=== PATIENT | male | born 1970 | race Caucasian/White ===

== ENCOUNTER 2025-08-11 21:10 | Emergency (ER) | payer SELFPAY ==
[2025-08-11] MEDS ORDERED: ONDANSETRON 4 MG/2 ML VIAL ONE (22:23)
[2025-08-11] MEDS ORDERED: NA CHLORIDE 0.9% 1,000 ML ONE (22:23)
[2025-08-11] MEDS ORDERED: MORPHINE 4 MG/ML SYR ONE (22:23)
[2025-08-11 22:36] LABS: Absolute Lymphocytes (CBC) 2.4 K/uL (0.7-4.9); Hematocrit 40.0 % (39.6-49.0); Hemoglobin 13.7 g/dL (13.6-17.9); MCH 29.1 pg (27.0-35.0); MCHC 34.2 g/dL (32.0-36.0); MCV 85.1 fL (80-100); MPV 9.2 fL (7.6-11.3); Nucleated RBC Absolute Count 0.0 (0-0); Nucleated Red Blood Cells % 0.1 % (0-0); RBC Red Blood Cell Count 4.70 M/uL (4.33-5.43); White Blood Count 12.30 thou/uL (4.3-10.9)
[2025-08-11] MEDS ORDERED: BUPIVACAINE 0.5% PF 10 ML VIAL ONE (22:44)
[2025-08-11] MEDS ORDERED: LIDOCAINE 1% MPF 5 ML VIAL ONE (22:44)
[2025-08-11 22:46] LABS: PT Prothrombin Time 12.0 SECONDS (10-13.0); PTT, Activated Partial Thromb 37.4 SECONDS (27.2-37.4); Protime INR 1.06
[2025-08-11 23:00] LABS: ALT/SGPT 28.0 U/L (16-61); Albumin 3.8 g/dL (3.4-5.0); Albumin/Globulin Ratio 1.1 (1.1-1.8); Alkaline Phosphatase 71.0 U/L (45-117); Anion Gap 8.0 mEq/L (5.0-15.0); BUN Blood Urea Nitrogen 12.0 mg/dL (7-18); Globulin 3.4 g/dL (2.3-3.5); Glucose Level 92.0 mg/dL (74-106)
[2025-08-11 23:02] LABS: AST/SGOT 25.0 U/L (15-37); Potassium 4.0 mEq/L (3.5-5.1)
[2025-08-11] MEDS ORDERED: CLINDAMYCIN 900MG/D5W 900 MG/50 ML IVPB IV ONE (23:15)
[2025-08-12] MEDS ORDERED: KETOROLAC 30 MG/ML INJ ONE (00:30)
--- NOTE | 2025-08-12 00:46 | EDPHYS ---
Physician Documentation [facility] Name: Braulio Lindsay Age: 55 yrs Sex: Male : 1970 Arrival Date: 08/11/2025 Time: 21:10 Bed 12 Private MD: ED Physician Matthias Jon HPI: 08/11 22:15 This 55 yrs old Male presents to ER via Ambulatory with complaints of Toothache. cp 22:15 The patient presents with pain, swelling right lower jaw. Patient is a 55-year-old male cp who presents to the emergency department with complaints of right lower jaw pain. Patient reports he started with some tooth pain in the right lower jaw and was seen by a local dentist who started him on amoxicillin that has been taken for the last 5 days. Patient started having swelling of his right lower jaw and so he presents to the emergency department for evaluation. Historical: - Allergies: 21:38 No Known Allergies; dd2 - PMHx: 21:38 None; dd2 - PSHx: 21:38 vertebra fusion; dd2 - Immunization history:: Adult Immunizations up to date. - Infectious Disease History:: Denies. - Social history:: Smoking status: Patient reports the use of cigarette tobacco products, smokes one pack cigarettes per day. ROS: 22:20 Constitutional: Negative for body aches, chills, fever, poor PO intake, cp 22:20 Eyes: Negative for injury, pain, redness, and discharge, cp 22:20 ENT: Positive for dental pain, right lower jaw and swelling, Negative for drainage from ear(s), ear pain, difficulty swallowing, difficulty handling secretions, 22:20 Cardiovascular: Negative for chest pain, 22:20 Respiratory: Negative for cough, shortness of breath, wheezing, 22:20 Abdomen/GI: Negative for abdominal pain, vomiting, diarrhea, constipation, 22:20 Neuro: Negative for altered mental status, dizziness, headache, weakness, 22:20 All other systems are negative, Exam: 22:20 Constitutional: The patient appears in no acute distress, alert, awake, cp non-diaphoretic, non-toxic, well developed, well nourished, uncomfortable, 22:20 Head/face: Noted is swelling, that is mild, of the right lower jaw, tenderness, that is moderate, 22:20 Eyes: Periorbital structures: appear normal, Conjunctiva: normal, Sclera: no appreciated abnormality, Lids and lashes: appear normal, bilaterally, 22:20 ENT: External ear(s): are unremarkable, Ear canal(s): are normal, clear, TM's: dullness, bilaterally, Nose: is normal, Mouth: Lips: moist, Oral mucosa: moist, Gums: noted to have an abscess, right lower jaw outer gum line with erythema, swelling, Tongue: is normal, Posterior pharynx: Airway: no evidence of obstruction, patent, Dental exam: dental caries, that is severe, diffusely, pain, that is moderate, specifically in the lower right first bicuspid (#28), lower right second bicuspid (#29) and lower right first molar (#30), Voice: is normal, 22:20 Neck: ROM/movement: Meningeal signs: are not present, 22:20 Chest/axilla: Inspection: normal, Palpation: is normal, no crepitus, no tenderness, 22:20 Cardiovascular: Rate: normal, Rhythm: regular, 22:20 Respiratory: the patient does not display signs of respiratory distress, Respirations: normal, no use of accessory muscles, no retractions, labored breathing, is not present, Breath sounds: are clear throughout, no decreased breath sounds, no stridor, no wheezing, 22:20 Abdomen/GI: Inspection: abdomen appears normal, 22:20 Skin: no rash present. 22:20 Neuro: Orientation: to person, place \T\ time. Mentation: is normal, Vital Signs: 21:34 BP 188 / 95; Pulse 76; Resp 16; Temp 98.5; Pulse Ox 99% on R/A; Weight 70.31 kg; Height dd2 5 ft. 7 in. ; Pain 3/10; 22:56 BP 161 / 88 Sitting; Pulse 71 MON; Resp 19; Temp 98.9(O); Pulse Ox 98% on R/A; Weight tb4 70.31 kg; Height 5 ft. 7 in. ; Pain 3/10; 23:57 BP 151 / 67; Pulse 83; Resp 17; Pulse Ox 100% on R/A; Pain 6/10; tb4 10/04 01:06 BP 155 / 69; Pulse 64; Resp 18 S; Temp 98.3; Pulse Ox 98% on R/A; ha1 08/11 22:56 Body Mass Index 24.28 (70.31 kg, 170.18 cm) tb4 08/11 21:34 Pain Scale: Adult dd2 22:56 Pain Scale: Adult tb4 23:57 Pain Scale: Adult tb4 Procedures: 00:45 I \T\ D: Incision and drainage was performed for an abscess of the abscess outer gumline cp right lower jaw Anesthetized with 5 cc mixture of 1% lidocaine w/o epi and 0.5% Marcaine w/o epi injected, right submandibular block. Incised with #11 blade. Drained moderate amount purulent fluid. bloody fluid. the patient tolerated the procedure well. MDM: 08/11 21:37 Medical Screening Exam initiated cp 08/12 00:45 Data reviewed: vital signs, nurses notes, lab test result(s), and as a result, I will cp discharge patient. 00:45 Differential diagnosis: dental caries, dental abscess, pericoronitis, acute necrotizing cp ulcerative gingivitis, gingivostomatitis. Consideration of Admission/Observation Escalation of care including admission/observation considered. I considered the following discharge prescriptions or medication management in the emergency department Medications were administered in the Emergency Department. See MAR. Counseling: I had a detailed discussion with the patient and/or guardian regarding the historical points, exam findings, and any diagnostic results supporting the discharge/admit diagnosis, lab results, the need for outpatient follow up, a dentist, to return to the emergency department if symptoms worsen or persist or if there are any questions or concerns that arise at home. Response to treatment: the patient's symptoms have mildly improved after treatment, and as a result, I will discharge patient. 08/11 22:14 Order name: CBC with Diff; Complete Time: 23:07 cp 08/11 23:07 Interpretation: Normal except: WBC 12.30; NEUT A 8.5. cp 08/11 22:14 Order name: CMP; Complete Time: 23:07 cp 08/11 22:14 Order name: Lactate w/ 2H reflex if indic.; Complete Time: 23:07 cp 08/11 23:07 Interpretation: Reviewed. 08/11 22:14 Order name: Protime (+inr); Complete Time: 23:07 cp 08/11 22:14 Order name: Ptt, Activated; Complete Time: 23:07 cp 08/11 22:14 Order name: Accucheck; Complete Time: 22:24 cp 08/11 22:14 Order name: Cardiac monitoring; Complete Time: 22:24 cp 08/11 22:14 Order name: IV Saline Lock - Large Bore; Complete Time: 22:23 cp 08/11 22:14 Order name: Labs collected and sent; Complete Time: 22:24 cp 08/11 22:14 Order name: O2 Per Protocol; Complete Time: :24 cp 08/11 22:14 Order name: O2 Sat Monitoring; Complete Time: 22:24 cp 08/11 22:14 Order name: Vital Signs; Complete Time: 22:24 cp Administered Medications: 08/11 22:41 Drug: NS 0.9% IV 1000 ml IV at 1000 ml once; to be given as a bolus over 60 minutes tb4 Route: IV; Rate: 1000 ml; Site: right antecubital; 23:43 Follow up: Response: No adverse reaction; IV Status: Completed infusion tb4 22:41 Drug: morphine IVP or IV 4 mg IVP once over 4 mins Route: IVP; Infused Over: 4 mins; tb4 Site: right antecubital; 23:44 Follow up: Response: No adverse reaction; Pain is decreased; RASS: Alert and Calm (0) tb4 22:41 Drug: Ondansetron IVP 4 mg IVP once; over 2 minutes Route: IVP; Site: right antecubital;tb4 23:44 Follow up: Response: No adverse reaction tb4 23:00 Drug: Lidocaine Infiltration (1 %) 5 ml 5 ml Infiltration once; to bedside {Note: ha1 ADMINISTERED BY CARE PROVIDER .} Volume: 5 ml; Route: Infiltration; 23:00 Drug: Bupivacaine Infiltration (0.5 %) 10 ml 10 ml Infiltration once {Note: ha1 ADMINISTERED BY CARE PROVIDER .} Volume: 10 ml; Route: Infiltration; 23:43 Drug: Clindamycin IVPB 900 mg IVPB once over 30 mins; (mix in 50 mL) Route: IVPB; tb4 Infused Over: 30 mins; Site: right antecubital; 08/12 00:47 Drug: Ketorolac IVP 15 mg IVP once Route: IVP; Site: right antecubital; ha1 00:47 Drug: metroNIDAZOLE PO 500 mg PO once Route: PO; ha1 Disposition: 08/13 00:45 Chart complete. cp Disposition Summary: 08/12/25 00:45 Discharge Ordered Notes: Location: Home cp Problem: new cp Symptoms: have improved cp Condition: Stable cp Diagnosis - Cellulitis and abscess of mouth cp Followup: cp - With: Jose Cruz Farah DDS - When: 2 - 3 days - Reason: Recheck today's complaints Discharge Instructions: - Discharge Summary Sheet cp - Cellulitis, Adult cp - Dental Abscess cp Forms: - Medication Reconciliation Form cp - Antibiotic Education cp - Prescription Opioid Use cp - Patient Portal Instructions cp - Leadership Thank You Letter cp Prescriptions: - Clindamycin HCl 300 mg Oral Capsule - take 1 capsule ORAL route every 6 hours for 10 days; 40 capsule; Refills: 0, cp Product Selection Permitted - Metronidazole 500 mg Oral Tablet - take 1 tablet ORAL route every 8 hours; 30 tablet; Refills: 0, Product cp Selection Permitted - Tramadol 50 mg Oral Tablet - take 1 tablet ORAL route every 8 hours as needed; 12 tablet; Refills: 0, cp Product Selection Permitted Addendum: 08/15/2025 09:07 Co-signature as Attending Physician, Matthias Jon DO I reviewed the patient's care t t7 provided by the Advanced Practice Provider and agree with the diagnosis and treatment plan. Signatures: Dispatcher [employer] EDOK Adam Lr, ELIZ PADavidC Dasha Olsen RN RN ha1 AGNES CORONADO RN RN dd2 Nadine Govea RN RN tb4 Matthias Jon DO DO tt7
--- NOTE | 2025-08-12 00:46 | ER ---
Nurse's Notes [facility] Name: Braulio Lindsay Age: 55 yrs Sex: Male : 1970 Arrival Date: 08/11/2025 Time: 21:10 Bed 12 Private MD: Diagnosis: Cellulitis and abscess of mouth Presentation: 08/11 21:34 Chief complaint: Patient states: DECAYED TOOTH ON BOTTOM RIGHT. REPORTS TAKING dd2 AMOXICILLIN X 5 DAYS AND AFTER DENTIST APPOINTMENT TODAY WAS ADVISED TO COME TO ER FOR FURTHER TREATMENT. Coronavirus screen: At this time, the client does not indicate any symptoms associated with coronavirus-19. Ebola Screen: No symptoms or risks identified at this time. Initial Sepsis Screen: Does the patient meet any 2 criteria? No. Patient's initial sepsis screen is negative. Does the patient have a suspected source of infection? No. Patient's initial sepsis screen is negative. Risk Assessment: Do you want to hurt yourself or someone else? Patient reports no desire to harm self or others. Onset of symptoms was July 30, 2025. 21:34 Method Of Arrival: Ambulatory dd2 21:34 Acuity: TONEY 3 dd2 Triage Assessment: 21:38 General: Appears in no apparent distress. uncomfortable, Behavior is calm, cooperative, dd2 appropriate for age. Pain: Complains of pain in lower right first molar Pain currently is 3 out of 10 on a pain scale. EENT: Reports pain in lower right first molar. Historical: - Allergies: 21:38 No Known Allergies; dd2 - PMHx: 21:38 None; dd2 - PSHx: 21:38 vertebra fusion; dd2 - Immunization history:: Adult Immunizations up to date. - Infectious Disease History:: Denies. - Social history:: Smoking status: Patient reports the use of cigarette tobacco products, smokes one pack cigarettes per day. Screenin:45 [facility] ED Fall Risk Assessment (Adult) History of falling in the last 3 months, tb4 including since admission No falls in past 3 months (0 pts) Confusion or Disorientation No (0 pts) Intoxicated or Sedated No (0 pts) Impaired Gait No (0 pts) Mobility Assist Device Used No (0 pt) Altered Elimination No (0 pt) Score/Fall Risk Level 0 - 2 = Low Risk Maintained a safe environment. Abuse screen: Denies threats or abuse. Denies injuries from another. Nutritional screening: No deficits noted. Tuberculosis screening: No symptoms or risk factors identified. Assessment: 22:57 General: Appears uncomfortable, Behavior is calm, cooperative. Pain: Complains of pain tb4 in lower right second bicuspid and lower right first molar Pain does not radiate. Pain currently is 3 out of 10 on a pain scale. Quality of pain is described as pressure, Pain began gradually, 5 days ago Is continuous, Alleviated by nothing. Aggravated by eating, drinking, Noted to be grimacing. Neuro: Level of Consciousness is awake, alert, obeys commands, Oriented to person, place, time, situation, Site Safety Manager are equal bilaterally Moves all extremities. Full function Gait is steady, Speech is normal, Facial symmetry appears normal. Cardiovascular: Denies nausea, vomiting. Respiratory: Airway is patent Respiratory effort is even, unlabored, Respiratory pattern is regular, symmetrical. GI: No deficits noted. No signs and/or symptoms were reported involving the gastrointestinal system. : No deficits noted. No signs and/or symptoms were reported regarding the genitourinary system. EENT: Dental caries noted in lower right second bicuspid (#29) and lower right first molar (#30) Reports Pressure to right lower jaw and swelling x5 days. Derm: Skin is intact, is healthy with good turgor, Skin is dry, Skin is normal, Skin temperature is warm Abscess located on lower right second bicuspid and lower right first molar Reports pain that is 3 out of 10 on a pain scale. Musculoskeletal: No deficits noted. No signs and/or symptoms reported regarding the musculoskeletal system. Circulation, motion, and sensation intact. Range of motion: intact in all extremities. Vital Signs: 21:34 BP 188 / 95; Pulse 76; Resp 16; Temp 98.5; Pulse Ox 99% on R/A; Weight 70.31 kg; Height dd2 5 ft. 7 in. ; Pain 3/10; 22:56 BP 161 / 88 Sitting; Pulse 71 MON; Resp 19; Temp 98.9(O); Pulse Ox 98% on R/A; Weight tb4 70.31 kg; Height 5 ft. 7 in. ; Pain 3/10; 23:57 BP 151 / 67; Pulse 83; Resp 17; Pulse Ox 100% on R/A; Pain 6/10; tb4 10/04 01:06 BP 155 / 69; Pulse 64; Resp 18 S; Temp 98.3; Pulse Ox 98% on R/A; ha1 08/11 22:56 Body Mass Index 24.28 (70.31 kg, 170.18 cm) tb4 08/11 21:34 Pain Scale: Adult dd2 22:56 Pain Scale: Adult tb4 23:57 Pain Scale: Adult tb4 ED Course: 08/11 21:22 Patient arrived in ED. im 21:31 Adam Lr PA-C is PHCP. cp 21:31 Matthias Jon DO is Attending Physician. cp 21:38 Triage completed. dd2 21:38 Arm band placed on right wrist. dd2 22:32 Inserted saline lock: 20 gauge in right antecubital area, using aseptic technique. tb4 Blood collected. Flushed with 10 mL NS. 22:45 Patient has correct armband on for positive identification. Bed in low position. Call tb4 light in reach. Side rails up X 1. Side rails up X2. Client placed on continuous cardiac and pulse oximetry monitoring. NIBP monitoring applied. manager monitoring on. Pulse ox on. Door closed. Lights dimmed. Warm blanket given. 22:45 Initial lab(s) drawn, by me, sent to lab. tb4 08/12 00:44 Jose Cruz Farah DDS is Referral Physician. cp 01:07 No provider procedures requiring assistance completed. IV discontinued, intact, ha1 bleeding controlled, No redness/swelling at site. Pressure dressing applied. 01:08 Provided Education on: FOLLOW UP WITH ORAL SURGERY . ha1 Administered Medications: 08/11 22:41 Drug: NS 0.9% IV 1000 ml IV at 1000 ml once; to be given as a bolus over 60 minutes tb4 Route: IV; Rate: 1000 ml; Site: right antecubital; 23:43 Follow up: Response: No adverse reaction; IV Status: Completed infusion tb4 22:41 Drug: morphine IVP or IV 4 mg IVP once over 4 mins Route: IVP; Infused Over: 4 mins; tb4 Site: right antecubital; 23:44 Follow up: Response: No adverse reaction; Pain is decreased; RASS: Alert and Calm (0) tb4 22:41 Drug: Ondansetron IVP 4 mg IVP once; over 2 minutes Route: IVP; Site: right antecubital;tb4 23:44 Follow up: Response: No adverse reaction tb4 23:00 Drug: Lidocaine Infiltration (1 %) 5 ml 5 ml Infiltration once; to bedside {Note: ha1 ADMINISTERED BY CARE PROVIDER .} Volume: 5 ml; Route: Infiltration; 23:00 Drug: Bupivacaine Infiltration (0.5 %) 10 ml 10 ml Infiltration once {Note: ha1 ADMINISTERED BY CARE PROVIDER .} Volume: 10 ml; Route: Infiltration; 23:43 Drug: Clindamycin IVPB 900 mg IVPB once over 30 mins; (mix in 50 mL) Route: IVPB; tb4 Infused Over: 30 mins; Site: right antecubital; 08/12 00:47 Drug: Ketorolac IVP 15 mg IVP once Route: IVP; Site: right antecubital; ha1 00:47 Drug: metroNIDAZOLE PO 500 mg PO once Route: PO; ha1 Medication: 08/11 22:57 VIS not applicable for this client. tb4 Outcome: 08/12 00:45 Discharge ordered by . zaria 01:07 Discharged to home ambulatory, ha1 01:07 Condition: stable 01:07 Discharge instructions given to patient, family, Instructed on discharge instructions, follow up and referral plans. medication usage, Demonstrated understanding of instructions, follow-up care, medications, Prescriptions given X 3, 01:09 Patient left the ED. ha1 Signatures: Adam Lr, DIANNAC PADavidC Dasha Olsen RN RN ha1 Rosy Simental DIANA, RN RN dd2 Nadine Govea RN RN tb4
[2025-08-12 01:22] VITALS: BP 155/69; TEMP 98.3; O2SAT 98
== END 2025-08-12 01:09 | disposition home or self-care (01) ==
LOC: ER 21:10
PROC: 0W930ZZ Drainage of Oral Cavity and Throat, Open Approach (ICD-10-PCS; principal; 2025-08-12)
DX: K12.2 Cellulitis and abscess of mouth (principal)
CPT/HCPCS: 36415; 80053; 83605; 85025; 85610; 85730; 96361; 96374; 96375; 99285; J1885; J2003; J2405; J7030